=== PATIENT | male | born 2000 | race African-American/Black ===

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

== ENCOUNTER 2022-12-28 09:29 | Emergency (ER) | payer SELFPAY ==
[~2022-12-28] VITALS: Ht 162.6 cm; Wt 91.0 kg
[~2022-12-28 09:29] MED LIST changes: +FLOXIN OTIC0.3 % AD
[2022-12-28 10:12] LABS: BASO% 0.5 % (0-3); EOS% 1.2 % (0-8); HEMATOCRIT 44.5 % (39.0-50.0); HEMOGLOBIN 14.5 g/dl (14.0-18.0); IMMATURE GRANULOCYTES 0.2 % (0.0-5.0); LYMPH% 27.2 % (15-41); MEAN CELL VOLUME 85.6 fL CALC (80.0-100.0); MEAN CORPUSCULAR HGB 27.9 pG CALC (26.0-32.0); MEAN CORPUSCULAR HGB CONC 32.6 g/dL CAL (32.0-36.0); NEUT# 4.3 thou/uL (1.82-7.42); NEUT% 64.9 % (42-76); RED BLOOD COUNT 5.2 mill/uL (4.70-6.10); RED CELL DISTRI WIDTH 13.1 % (11.5-15.5)
[2022-12-28 10:23] LABS: ALBUMIN 4.5 g/dL (3.2-5.0); ALKALINE PHOSPHATASE 53 u/l (38-126); ANION GAP 10 (6-22 (CALC)); BILIRUBIN, TOTAL 0.5 mg/dL (0.2-1.3); BUN 12 mg/dL (9-20); BUN/CREATININE RATIO 11 (12-20 (CALC)); CARBON DIOXIDE 27 mmol/l (22-30); CHLORIDE 107 mmol/l (95-108); CREATININE 1.1 mg/dL (0.7-1.3); GFR FOR AFR.AMER. > 60 ML/MIN (>=60 (CALC)); GFR OTHER RACES > 60 ML/MIN (>=60 (CALC)); SGOT/AST 25 u/l (17-59); SODIUM 140 mmol/l (137-146); TOTAL PROTEIN 7.6 g/dL (6.3-8.2)
[2022-12-28 11:49] VITALS: BP 115/85
== END 2022-12-28 12:11 | disposition home or self-care (01) | DRG 313 ==
LOC: ED 09:29
PROVIDERS: Family Medicine
DX: R07.9 Chest pain, unspecified (principal); I48.91 Unspecified atrial fibrillation

== ENCOUNTER 2023-03-20 16:34 | Observation (INO) | payer SELFPAY ==
[~2023-03-20] VITALS: Ht 162.6 cm; Wt 102.6 kg
[2023-03-20] VITALS (21 sets, daily range): BP systolic 107–147; BP diastolic 61–94
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
[2023-03-20 17:11] LABS: ALBUMIN 4.7 g/dL (3.2-5.0); ALKALINE PHOSPHATASE 58 u/l (38-126); ANION GAP 12 (6-22 (CALC)); BUN 10 mg/dL (9-20); BUN/CREATININE RATIO 9 (12-20 (CALC)); CARBON DIOXIDE 31 mmol/l (22-30); CHLORIDE 101 mmol/l (95-108); CREATININE 1.2 mg/dL (0.7-1.3); GFR FOR AFR.AMER. > 60 ML/MIN (>=60 (CALC)); GFR OTHER RACES > 60 ML/MIN (>=60 (CALC)); LIPASE 35 u/l (23-300); POTASSIUM 3.8 mmol/l (3.5-5.1); SGOT/AST 26 u/l (17-59); SODIUM 139 mmol/l (137-146); TOTAL PROTEIN 8.3 g/dL (6.3-8.2)
[2023-03-20 17:16] LABS: BASO% 0.3 % (0-3); BILIRUBIN, TOTAL 0.8 mg/dL (0.2-1.3); EOS% 0.5 % (0-8); HEMATOCRIT 42.4 % (39.0-50.0); HEMOGLOBIN 13.5 g/dl (14.0-18.0); IMMATURE GRANULOCYTES 0.2 % (0.0-5.0); LYMPH% 9.1 % (15-41); MEAN CELL VOLUME 86.4 fL CALC (80.0-100.0); MEAN CORPUSCULAR HGB 27.5 pG CALC (26.0-32.0); MEAN CORPUSCULAR HGB CONC 31.8 g/dL CAL (32.0-36.0); MONO% 5.1 % (2-13); NEUT# 8.95 thou/uL (1.82-7.42); NEUT% 84.8 % (42-76); RED BLOOD COUNT 4.91 mill/uL (4.70-6.10)
--- NOTE | 2023-03-20 17:42 | NUR ---
PT LYING IN BED ASLEEP, GRANDMOTHER AT BEDSIDE. WILL CONTINUE TO MONITOR. NO IMMEDIATE DISTRESS NOTED.
--- NOTE | 2023-03-20 18:42 | NUR ---
NO COMPLAINTS/DISTRESS WILL CONTIUE TO MONITOR
--- NOTE | 2023-03-20 19:45 | NUR ---
PT LYING IN BED FAMILY AT BEDSIDE NO CHANGES, WILL MONITOR
--- NOTE | 2023-03-20 20:31 | NUR ---
PT TO BE ADMITTED, AWAITING ROOM. NO DISTRESS WILL MONITOR
--- NOTE | 2023-03-20 21:12 | NUR ---
PATIENT ADMITTED TO [facility] VIA WC. ALERT AND ABLE TO MAKE NEEDS KNOWN. AMBULATED SELF TO ROOM BED. ASSESSMENT COMPLETE. NO COMPLAINTS OF CHEST PAIN. NO DISTRESS NOTED. ORIENTED PATIENT TO ROOM, CALL LIGHT AND SURROUNDINGS. BED IN LOW POSITION. CALL BRENNAN IN REACH.
--- NOTE | 2023-03-20 23:57 | NUR ---
PATIENT REMAINS RESTING IN BED. NO COMPLAINTS OF CHEST PAIN. NO DISTRESS NOTED. BED REMAINS IN LOW POSITION. CALL BRENNAN AND BELONGINGS WITHIN REACH.
[2023-03-21 04:11] VITALS: BP 121/71
--- NOTE | 2023-03-21 04:40 | NUR ---
PATIENT REMAINS RESTING IN BED ON HIS SIDE. NO COMPLAINTS OF CHEST PAIN. NO DISTRESS. BED REMAINS IN LOW POSITION. CALL BRENNAN AND BELONGINGS IN REACH.
[2023-03-21 06:00] LABS: CHOLESTEROL HDL RATIO 4.6 (<4.4 (CALC)); MAGNESIUM 1.7 mg/dL (1.6-2.3)
[2023-03-21 07:22] VITALS: BP 120/79
--- NOTE | 2023-03-21 08:00 | NUR ---
PT IN BED ALERT AND OREINTED X 4, PT HAS NO C/O PAIN AT THIS TIME. TELE ON WITH ALL LEADS ATTACHED. LUNGS SOUNDS CLEAR. PT AMBULATES WELL TO BATHROOM FOR TOILETING NEEDS. IV SITE TO [employer]AC [employer]AN AND INTACT. PT HAS CALL LIGHT IN REACH AND SAFETY MEASURES IN PLACE AT THIS TIME.
[2023-03-21] MEDS ORDERED: ASPIRIN 81 LOW81 MG PO (10:09)
[2023-03-21 11:17] VITALS: BP 128/73
--- NOTE | 2023-03-21 12:41 | NUR ---
Discharge instructions given. Patient verbalizes understanding of same. Discharged in stable condition via Wheelchair to Home with volunteer. All belongings sent with pt.
== END 2023-03-21 12:40 | disposition home or self-care (01) | DRG 313 ==
LOC: ED 16:34 → MS2 20:23
PROVIDERS: Nurse Practitioner; ADMIT Internal Medicine; ATTEND Internal Medicine
DX: R07.9 Chest pain, unspecified (principal); R94.31 Abnormal electrocardiogram [ECG] [EKG]; I48.91 Unspecified atrial fibrillation; G47.419 Narcolepsy without cataplexy; G25.81 Restless legs syndrome
CPT/HCPCS: G0378; J1650

== ENCOUNTER 2023-05-20 03:17 | Emergency (ER) | payer SELFPAY ==
[~2023-05-20] VITALS: Ht 162.6 cm; Wt 90.0 kg
[~2023-05-20 03:17] MED LIST changes: +ASPIRIN 81 LOW81 MG PO
[2023-05-20 04:01] LABS: BASO% 0.2 % (0-3); EOS% 0.3 % (0-8); HEMATOCRIT 44.7 % (39.0-50.0); HEMOGLOBIN 14.6 g/dl (14.0-18.0); IMMATURE GRANULOCYTES 0.6 % (0.0-5.0); LYMPH% 6.1 % (15-41); MEAN CORPUSCULAR HGB 27.8 pG CALC (26.0-32.0); MEAN CORPUSCULAR HGB CONC 32.7 g/dL CAL (32.0-36.0); MONO% 4.8 % (2-13); NEUT# 13.63 thou/uL (1.82-7.42); RED BLOOD COUNT 5.26 mill/uL (4.70-6.10); RED CELL DISTRI WIDTH 13.3 % (11.5-15.5)
[2023-05-20 04:05] LABS: ALBUMIN 4.6 g/dL (3.2-5.0); ALKALINE PHOSPHATASE 55 u/l (38-126); ANION GAP 13 (6-22 (CALC)); BUN 10 mg/dL (9-20); BUN/CREATININE RATIO 9 (12-20 (CALC)); CARBON DIOXIDE 26 mmol/l (22-30); CHLORIDE 101 mmol/l (95-108); CREATININE 1.2 mg/dL (0.7-1.3); GFR FOR AFR.AMER. > 60 ML/MIN (>=60 (CALC)); GFR OTHER RACES > 60 ML/MIN (>=60 (CALC)); SGOT/AST 31 u/l (17-59); SODIUM 137 mmol/l (137-146); TOTAL PROTEIN 8.1 g/dL (6.3-8.2)
[2023-05-20 04:09] LABS: BILIRUBIN, TOTAL 1.3 mg/dL (0.2-1.3)
[2023-05-20] MEDS ORDERED: ZITHROMAX TRI-500 MG PO (04:48)
[2023-05-20 04:53] VITALS: BP 137/75
== END 2023-05-20 05:02 | disposition home or self-care (01) | DRG 153 ==
LOC: ED 03:17
PROVIDERS: Family Medicine
DX: J02.9 Acute pharyngitis, unspecified (principal); I48.91 Unspecified atrial fibrillation; G40.909 Epilepsy, unspecified, not intractable, without status epilepticus; Z20.822 Contact with and (suspected) exposure to COVID-19